=== PATIENT | female | born 1950 | race Caucasian/White ===

== ENCOUNTER → 2018-01-29 | Day surgery (SDC) | payer MEDICARE, OTHER ==
[~2018-01-29] MED LIST: ACETAMINOPHEN325 M1 PO; ADVAIR 250-501 EACH INH; ALLOPURINOL300 MG PO; ATIVAN1 MG PO; AVALIDE 150-121 EACH PO; BIOFREEZE GEL TOP; CENTRUM SILVER1 EAC3 PO; CYCLOBENZAPRINE10 MG PO; CYMBALTA60 MG PO; DICLOFENAC SODIUM TOP; DILANTIN100 MG PO; DIOVAN HCT 80-1 EACH PO; ECOTRIN81 MG PO; FENTANYL CITRATE/PF 100MCG/2 ML INJ ONE; GABAPENTIN300 MG PO; GABAPENTIN600 MG PO; GLIPIZIDE XL5 MG PO; GLIPIZIDE5 MG PO; IRON325 M1 PO; LASIX20 MG PO; LETROZOLE2.5 MG PO; LOPERAMIDE2 MG PO; LOSARTAN POTASS25 MG PO; LYRICA50 MG PO; MAGNESIUM OXID400 MG PO; MELATONIN3 M1 PO; METFORMIN HCL500 MG PO; METOPROLOL SUCC25 MG PO; METOPROLOL TART25 MG PO; MIDAZOLAM HCL 2 MG/2 ML VIAL ONE; MIDODRINE HCL2.5 MG PO; NEXIUM40 MG PO; OMEPRAZOLE40 MG PEG; ORAJEL BU; OS-CAL ULTRA T1 EACH PO; PEPTO-BISMOL262 M1 PO; POTASSIUM CHLO20 ME1 PO; PRAVASTATIN SOD20 MG PO; PRAVASTATIN SOD40 MG PO; PREVACID30 M1 PO; PROPOFOL IV EMULSION 10 MG/ML 20 ML VIAL ONE; REFRESH TEARS15 ML OU; RISPERIDONE0.5 MG PO; SERTRALINE HCL100 MG PO; SERTRALINE HCL50 MG PO; SINGULAIR10 MG PO; SPIRIVA18 MCG INH; TEMAZEPAM15 MG PO; TRAZODONE HCL100 MG PO; TYLENOL PO; ULTRAM 50MG50 MG PO; VITAMIN B 12 PO; VITAMIN D1000 UNI1 PO; VYTORIN 10-401 EACH PO; ZOFRAN ODT4 MG PO
[2018-01-29 17:59] VITALS: BP 122/73
== END | disposition home or self-care (01) ==
LOC: OR 12:55
PROVIDERS: ATTEND Internal Medicine Gastroenterology
DX: Z12.11 Encounter for screening for malignant neoplasm of colon (principal); D12.2 Benign neoplasm of ascending colon; K29.70 Gastritis, unspecified, without bleeding; K21.9 Gastro-esophageal reflux disease without esophagitis; K20.9 Esophagitis, unspecified; K31.89 Other diseases of stomach and duodenum; K64.8 Other hemorrhoids; J44.9 Chronic obstructive pulmonary disease, unspecified; M06.9 Rheumatoid arthritis, unspecified; F03.90 Unspecified dementia, unspecified severity, without behavioral disturbance, psychotic disturbance, mood disturbance, and anxiety; I11.0 Hypertensive heart disease with heart failure; I50.9 Heart failure, unspecified; G62.9 Polyneuropathy, unspecified; E11.9 Type 2 diabetes mellitus without complications; F31.9 Bipolar disorder, unspecified; Z88.0 Allergy status to penicillin; Z88.8 Allergy status to other drugs, medicaments and biological substances; Z79.82 Long term (current) use of aspirin
CPT/HCPCS: 36415; 43239; 43450; 45384; 82948; J2250